=== PATIENT | male | born 1990 | race Caucasian/White ===

== ENCOUNTER 2019-08-17 20:32 | Emergency (ER) | payer SELFPAY ==
[~2019-08-17] VITALS: Ht 177.8 cm; Wt 83.2 kg
[~2019-08-17 20:32] MED LIST: ACHD5005 PO; CYCL10TA9 PO; NAPR-243 PO
--- OUTSIDE RECORDS SUMMARY | 2019-08-17 20:38 | XMS REPORT | Continuity of Care Document ---
Author Organization Unknown Address Unknown Phone Unavailable Allergies Active Description Code Type Severity Reaction Onset Reported/Identified Relationship to Patient Clinical Status Yes morphine [id number] Drug Allergy Moderate HIVES 10/13/2011 Medications There is no data. Problems There is no data. Procedures There is no data. Results There is no data. Encounters ACCT No. Visit Date/Time Discharge Status Pt. Type Provider Facility Loc./Unit Complaint [id number] 08/17/2019 20:34:[address] Emergency KAILYN JEAN DO Via [facility] ER FS FINGERS LACERATION
--- NOTE | 2019-08-17 20:42 | ED Upper Extremity ---
General Chief Complaint: Laceration Stated Complaint: FINGERS LACERATION Source: patient Exam Limitations: no limitations History of Present Illness Date Seen by Provider: August 17, 2019 Time Seen by Provider: 20:34 Initial Comments The patient is a 28-year-old male presents for evaluation of lacerations of the left second and third fingertips. He states that he was using a circular saw at home when he lost control and his hand went into the blade. He has full range of motion of all fingers and does not believe that he injured the bone. There is no nail injury. There is no active bleeding upon arrival. He is unsure of his tetanus status so he will be given a Tdap today. He has no other complaints at this time. Onset: just prior to arrival Severity: moderate Pain/Injury Location: left 2nd finger, left 3rd finger Method of Injury: incised Modifying Factors: Improves With Other (palpation makes it worse) Allergies and Home Medications Allergies Coded Allergies: morphine (Verified Allergy, Intermediate, HIVES, 10/13/11) Home Medications Cyclobenzaprine Hcl 10 Mg Tablet, 1 EACH PO Q8HR PRN Prescribed by: ERIS RAND on 10/13/112116 Hydrocodone Bit/Acetaminophen 1 Each Tablet, 1-2 EACH PO Q6H PRN Prescribed by: ERIS RAND on 10/13/112116 Naproxen 500 Mg Tablet, 1 EACH PO BID PRN Prescribed by: ERIS RAND on 10/13/112116 Patient Home Medication List Home Medication List Reviewed: Yes Review of Systems Constitutional: no symptoms reported EENTM: no symptoms reported Respiratory: no symptoms reported Cardiovascular: no symptoms reported Gastrointestinal: no symptoms reported Genitourinary: no symptoms reported Musculoskeletal: other (fingtip lacerations to left 2nd and 3rd fingers) Skin: see HPI Psychiatric/Neurological: No Symptoms Reported All Other Systems Reviewed Negative Unless Noted: Yes Past Vnlsjme-[id number]-Roeqcq Hx Past Med/Social Hx: Reviewed Nursing Past Med/Soc Hx Patient Social History Recent Foreign Travel: No Contact w/Someone Who Travel: No Physical Exam Vital Signs Vital Signs - First Documented 08/17/19 20:51 Temp 36.1 Pulse 60 Resp 18 B/P (MAP) 132/95 (107) Pulse Ox 97 O2 Delivery Room Air Capillary Refill : Height, Weight, BMI Height: '" Weight: lbs. oz. kg; BMI Method: General Appearance: WD/WN, no apparent distress HEENT: PERRL/EOMI, pharynx normal Cardiovascular: regular rate, rhythm, no JVD Respiratory: normal breath sounds, no respiratory distress, no accessory muscle use Shoulder: normal inspection, non-tender, no evidence of injury, normal ROM Elbow/Forearm: normal inspection, non-tender, no evidence of injury, normal ROM Wrist: Yes normal inspection, Yes non-tender, Yes no evidence of injury Hand: normal ROM, Left, laceration (laceration to left 2nd fingertip 2cm, no bone injury, no tendon injury, no nail injury, laceration to left 3rd fingertip 2cm, no bone injury, no tendon injury, no active bleeding) Neurologic/Tendon: normal sensation, normal motor functions, normal tendon f unctions, responds to pain, no evidence tendon injury Neurologic/Psychiatric: no motor/sensory deficits, alert, normal mood/affect, oriented x 3 Skin: normal color, warm/dry Procedures/Interventions Wound Location: Upper Extremities Other Wound Location left 2nd finger tip Wound Length (cm): 3 Wound's Depth, Shape: irregular Wound Explored: contaminated Irrigated w/ Saline (ccs): 500 Anesthesia: 1% Lidocaine Volume Anesthetic (ccs): 3 Suture: Monocryl Suture Size: 4-0 Number of Sutures: 5 Layer Closure?: 1 Sterile Dressing Applied?: Yes 3 sided ring block to both 2nd and 3rd fingers of the left hand Left 3rd finger tip laceration, 3cm, 5 4-0 nylon sutures, single layer closure No complications Progress/Results/Core Measures Results/Orders My Orders Orders - TED AVINA DO Dipht,Pertuss(Acell),Tet Adult (Boostrix (08/17/19 20:45) Lidocaine 1% Inj 20 Ml (Xylocaine 1% Inj (08/17/19 20:45) Medications Given in ED Current Medications Medications Dose Ordered Sig/Jacob Route Start Time Stop Time Status Last Admin Dose Admin Diphtheria/ Tetanus/Acell Pertussis 0.5 ml ONCE ONCE IM 08/17/19 20:45 08/17/19 20:46 DC 08/17/19 20:48 0.5 ML Lidocaine HCl 20 ml ONCE ONCE INJ 08/17/19 20:45 08/17/19 20:46 DC 08/17/19 20:47 20 ML Vital Signs/I&O 08/17/19 20:51 Temp 36.1 Pulse 60 Resp 18 B/P (MAP) 132/95 (107) Pulse Ox 97 O2 Delivery Room Air Progress Progress Note : Progress Note @2125 - Patient tolerated the repair well. Advised the patient to have his sutures removed in 7-10 days and to return to the emergency Department immediately for new or worsening symptoms. The patient expresses verbal understanding and agreement with the plan and is stable for discharge. Departure Impression Primary Impression: Laceration of finger of left hand Disposition: HOME, SELF-CARE Condition: Stable Departure-Patient Inst. Decision time for Depature: 21:28 Referrals: NO,LOCAL PHYSICIAN (PCP/Family) Primary Care Physician Patient Instructions: Laceration Repair With Stitches (DC) Add. Discharge Instructions: Your sutures should be removed in 7-10 days and he can return to the emergency department to have them taken out. Change the dressing daily. Take the prescribed medicine as directed. Return to the emergency department for concerns over infection, worsening pain, new or worsening symptoms. TED AVINA DO August 17, 2019 20:42
[2019-08-17] MEDS ORDERED: TETANUS,DIPTH,PERTUSS P/F (BOOSTRIX) 0.5 ML VIAL IM ONE (20:45)
[2019-08-17] MEDS ORDERED: LIDOCAINE 1% INJ 20 ML 20 ML VIAL INJ ONE (20:45)
[2019-08-17 20:51] VITALS: BP 132/95
--- NOTE | 2019-08-17 20:57 | NUR ---
hand soaked in hibiclens and water, no bleeding noted
--- NOTE | 2019-08-17 21:25 | NUR ---
aluminum finger splints x 2 applied
[2019-08-17] MEDS ORDERED: HYDR-83 PO (21:30)
[2019-08-17] MEDS ORDERED: HYDROcodone/APAP 5 MG/325 MG (LORTAB) TAB PO ONE (21:30)
[2019-08-17] MEDS ORDERED: CEPH500T PO (21:30)
== END 2019-08-17 21:32 | disposition home or self-care (01) ==
LOC: EDUNIT# 20:32 → ER FS 20:34
DX: S61.211A Laceration without foreign body of left index finger without damage to nail, initial encounter (principal); S61.213A Laceration without foreign body of left middle finger without damage to nail, initial encounter; Z88.5 Allergy status to narcotic agent; Z23 Encounter for immunization; W31.2XXA Contact with powered woodworking and forming machines, initial encounter; Y92.009 Unspecified place in unspecified non-institutional (private) residence as the place of occurrence of the external cause
CPT/HCPCS: 12001; 64450; 90715